=== PATIENT | male | born 1955 | race Caucasian/White ===

== ENCOUNTER 2025-01-21 22:39 | Emergency (ER) | payer MEDICARE, OTHER, SELFPAY ==
[2025-01-21 22:44] VITALS: BP 192/85
--- NOTE | 2025-01-21 23:50 | ED.GENMED ---
History of Present Illness
General
Chief Complaint: Oral/Mouth Problem
Source: patient and spouse
Time Seen by Provider: 01/21/25 23:43
History of Present Illness
History of Present Illness:
69-year-old male who states that about 2 hours ago while sitting and watching TV he put his finger into his mouth and developed a burning sensation on his tongue. He then started to recall that earlier today he was fixing something, and
manipulating a battery that had been leaking. He did wash his hands afterwards but started to wonder whether or not he was exposed to battery acid causing this burning in his tongue. This has since resolved. After he initially noted this burning
he drank some water. He denies pain or discomfort, burning, swelling, trouble swallowing, trouble breathing, chest pain, neck pain, headache, nausea, vomiting, or other complaints.
Past History
Past History
ED Past Medical History: GERD, HTN and Other (Bladder cancer, prostate cancer)
Social History
Tobacco: Former smoker
Alcohol: Occasional
Drug: None
Personal:
Living: with family
Family History
Family History: Other (Follow with [place], mother with colon cancer)
Phy Exam
Physical Exam
Physical Exam:
GENERAL: Alert , in no apparent distress, nontoxic
EYE: pupils equal and reactive
NECK: Supple, no significant adenopathy.
ENT: o/p clr, mmm, no trismus, no drool, no swelling, no lesions, voice clear, no stridor.
CARDIAC: Regular rate and rhythm .
LUNGS: Clear breath sounds bilaterally, no acute respiratory distress, no wheezes/rales/rhonchi
ABDOMEN: Soft, without focal tenderness, no r/g, no cvat
NEUROLOGICAL: Alert and oriented, no focal neuro deficits
SKIN: Warm and dry, skin intact.
MUSCULOSKELETAL: No edema, well perfused.
PSYCH: Normal and appropriate interaction.
Course
Vital Signs
Initial and Last Documented VS:
Initial Vital Signs
Temp Pulse Resp BP Pulse Ox
97.9 F 85 16 192/85 95
01/21/25 22:44 01/21/25 22:44 01/21/25 22:44 01/21/25 22:44 01/21/25 22:44
Last Documented Vital Signs
Temp Pulse Resp BP Pulse Ox
97.9 F 85 16 192/85 95
01/21/25 22:44 01/21/25 22:44 01/21/25 22:44 01/21/25 22:44 01/21/25 23:53
*Pulse Oximetry
SaO2: 95
Oxygen Mode of Delivery: Room air
Patient hypoxic: no
*Critical Care Note
Total Time (30-74mins, 75-104mins- exclusive of procedures): Not Applicable
Update Note
Update Note:
Patient presents to the Emergency Department with ___tongue burning
Number and Complexity of Problems Addressed at the Encounter
� Chronic conditions affecting care:
� Acute Exacerbation and/or Progression of Chronic Illness:
� Differential Diagnosis includes: But not limited to toxin exposure, oral lesion, etc etc.
Amount and/or Complexity of Data to be Reviewed and Analyzed
� I performed an independent evaluation of and my interpretation is:
EKG:
CT:
Xrays:
Laboratory Studies:
Other:
� Review of other/old records reveals:
� Clinical information was obtained by an independent historian: who is bedside
� Prescriptions/Medications Considered but not given:
� Further testing considered but not performed:
Risk of Complications and/or Morbidity or Mortality of Patient Management
� Social determinants of health affecting care:
� Discussion with other providers (PCP, Hospitalists, Consultants, etc):
� Escalation of care including admission/observation vs risk of discharge considered: Intraoral and overall exam is completely normal. I have low suspicion for toxin exposure, and if he was exposed to battery acid, it would have
been a very very small amount, he is asymptomatic, without signs or symptoms to suggest intraoral or esophageal injury. Discussed with patient importance of follow-up and reasons to return to the ER.
ED Attending Note
-
Portions of this chart may have been created with voice recognition software.� Occasional wrong word or��sound alike� substitutions may have occurred due to the inherent limitations of voice recognition software.
Discharge Plan
Departure
Patient Disposition: Home (Routine Discharge)
Date of Disposition: 01/21/25
Time of Disposition: 23:53
Patient with high blood pressure during this ER visit?: Yes
Condition: Good
Discharge Problem:
Burning tongue
Instructions: BLOOD PRESSURE
Prescriptions:
No Action
multivitamin 1 EACH tablet
1 ea PO DAILY
aspirin 81 MG tablet,delayed release (DR/EC)
81 mg PO DAILY
omeprazole 10 MG capsule,delayed release(DR/EC)
30 mg PO DAILY
losartan [Cozaar] 100 MG tablet
100 mg PO DAILY
docosahexaenoic acid-epa 1 CAP capsule
1 cap PO DAILY
hydrochlorothiazide 12.5 MG tablet
12.5 mg PO DAILY
Pantetine
1 tab PO DAILY
Referrals:
Jan Alcala MD [Family Provider, Physical Medicine and Rehab] - Follow up in 2-3 days
Activity Restrictions/Additional Instructions:
IF YOU DEVELOP ANY PAIN OR BURNING, CHEST PAIN, SHORTNESS OF BREATH, TROUBLE SWALLOWING, SWELLING, OR OTHER WORRISOME SIGNS, PLEASE RETURN TO THE ER IMMEDIATELY! YOUR BLOOD PRESSURE WAS NOTED TO BE ELEVATED TODAY, PLEASE HAVE THIS RECHECKED
PROMPTLY WITH YOUR DOCTOR
Interventions
Interventions:
*Risk Screen - Suicide Last Done: 01/21/25 22:44
*General Assessment Last Done: 01/21/25 22:44
*Neglect/Abuse Screening Last Done: 01/21/25 22:44
*ED- Fall Risk Assessment Last Done: 01/21/25 22:44
*ED COVID-19 Vaccine History Last Done: 01/21/25 22:44
*ED Influenza Vaccine History Last Done: 01/21/25 22:44
*Nursing Disposition Last Done: 01/22/25 00:39
Discharge Date and Time
Discharge Date/Time: 01/22/25 00:20
Print Language: EGYPTIAN
== END 2025-01-22 00:20 | disposition home or self-care (01) ==
LOC: EMR 22:39
PROVIDERS: EMERGENCY PHYSICIAN Emergency Medicine; FAMILY PHYSICIAN Internal Medicine
DX: K14.6 Glossodynia (principal); I10 Essential (primary) hypertension; Z87.891 Personal history of nicotine dependence; Z85.51 Personal history of malignant neoplasm of bladder; Z85.46 Personal history of malignant neoplasm of prostate
CPT/HCPCS: 99282